=== PATIENT | male | born 1970 | race Caucasian/White ===

== ENCOUNTER 2016-08-03 12:20 | Emergency (ER) | payer OTHER ==
[2016-08-03 14:14] LABS: Hematocrit 41.4 % (42.0-52.0); Hemoglobin 14.9 gm/dL (13.5-18.0); Mean Cell Volume 88.8 fl (78-100); Mean Platelet Volume 8.8 fl (6.0-9.5); Neutrophil # 2.5 K/mm3 (1.3-6.0); Neutrophil % 54.4 % (42-75.0); Platelet Count 122 K/mm3 (150-450); Red Blood Count 4.66 M/mm3 (4.7-6.0); Red Cell Distribution Width 13.8 % (11.5-14.0); White Blood Count 4.6 K/mm3 (4.0-10.5)
[2016-08-03 14:23] LABS: Urine Bilirubin Negative (NEGATIVE); Urine Ketone 15 mg/dL (NEGATIVE); Urine Nitrite Negative (NEGATIVE); Urine Protein Negative (NEGATIVE); Urine Specific Gravity 1.015 SP.GR. (1.005-1.030); Urine Urobilinogen Normal (NORMAL)
--- OUTSIDE RECORDS SUMMARY | 2016-08-03 14:24 | XMS REPORT | Continuity of Care Document ---
:1970 Author Organization [facility] [place] [address] Phone [phone] Care Team Providers Name Role Phone Unavailable Primary Care Provider Unavailable Active Allergies and Adverse Reactions No Known Allergies Current Medications Not on file Active Problems Problem Noted Date Alcohol dependence (HCC) 10/18/2013 Bipolar disorder ([facility]) 10/18/[address] decision 10/18/2013 Overview: substance abuse court order Social History Tobacco Use Types Packs/Day Years Used Date Never Assessed Last Filed Vital Signs Vital Sign Reading Time Taken Blood Pressure 120/79 10/21/2013 6:00 AM CDT Pulse 83 10/21/2013 6:00 AM CDT Temperature 35.9 C (96.7 F) 10/21/2013 6:00 AM CDT Respiratory Rate 16 10/21/2013 6:00 AM CDT Height - - Weight 79.561 kg (175 lb 6.4 oz) 10/18/2013 9:43 PM CDT Body Mass Index - - Oxygen Saturation - - Plan of Care Health Maintenance Due Date Last Done Comments [facility] Dtap/Tdap/Td Vaccines (1 - 1987 Tdap) [facility] Lipid Disorder Screening 2003 [facility] Influenza 12/20/2015 [facility] Zoster (#1) 2028 [facility] Pneumococcal Pcv7/13 0-5 Aged Out No longer eligible based on Yrs patient's age to complete this topic Results from Last 3 Months Not on file
[2016-08-03 14:30] LABS: Urine Appearance Clear; Urine Bacteria None Seen; Urine Blood 10 /ul (NEGATIVE); Urine Color Yellow; Urine RBC None Seen /hpf (0-5); Urine WBC None Seen /hpf (0-5)
[2016-08-03 14:37] LABS: Cocaine Ur Negative (NEGATIVE); Urine Barbiturate Negative (NEGATIVE); Urine Benzodiazepines Negative (NEGATIVE); Urine Opiates Negative (NEGATIVE); Urine PCP Negative (NEGATIVE); Urine THC Negative (NEGATIVE)
[2016-08-03 14:37] LABS: ALT 44 U/L (19-67); AST 61 U/L (0-48); Albumin * 4.6 gm/dl (3.4-5.0); Alkaline Phosphatase * 63 U/L (50-170); Anion Gap 21.6 mmol/L (6.8-13.8); BUN/Creatinine Ratio 4.4 (9.0-21.6); Bilirubin, Total 0.6 mg/dL (0.0-1.1); Blood Urea Nitrogen 3 mg/dL (6-23); Chloride 90 mmol/L (97-106); Glucose * 94 mg/dL (70-110); Potassium 3.6 mmol/L (3.4-4.6); Sodium 129 mmol/L (132-142); TSH * 1.407 uIU/mL (0.358-3.74)
[2016-08-03 14:53] LABS: Ca. Corrected For Albumin 7.7 mg/dL (8.4-10.2); Calcium * 8.5 mg/dL (7.9-10.9); Total Protein 7.9 gm/dL (6.2-8.2)
[2016-08-03] MEDS ORDERED: MULTIVIT INFUSN,ADULT 4,VIT K 10 ML, THIAMINE HCL 100 MG in NORMAL SALINE 1,000 ML IV SCH ×6 (16:00)
--- NOTE | 2016-08-03 18:52 | ERNOTE ---
Psychological HPI - Date Date of Service: 08/03/16 - General Chief Complaint: Psychiatric Problem Source: Reports: patient, police, other - under court order Exam Limitations: Reports: no limitations - Immun/Allergies/Home Medications Allergies/Adverse Reactions: Allergies No Known Allergies Allergy (Verified 08/03/16 12:36) Home Medications: HOME MEDICATIONS chlordiazePOXIDE HCL [Librium] 25 mg PO BID #30 capsule 03/14/16 [Last Taken Unknown] - History of Present Illness Narrative: Pt brought to ER in custody of police under court order for mental health evaluation. Pt's family concerned about his excessive alcohol intake. Petitions on review, do not however mention suicidal or homicidal tendencies. Pt denies any such tendencies, and simply states he drinks because he is bored. He claims to understand the ramifications of his actions, but declines any alcohol treatment or rehab services at this time. Time Seen by Provider: 08/03/16 13:00 Intent: Reports: no prior thoughts-suicide. Denies: suicide, prior thoughts of suicide Review of Systems - Review of Systems Constitutional: Present: no symptoms reported EYE: Present: no symptoms reported ENT: Present: no symptoms reported Respiratory: Present: no symptoms reported Cardiology: Present: no symptoms reported Gastrointestinal/Abdominal: Present: no symptoms reported Genitourinary: Present: no symptoms reported Musculoskeletal: Present: no symptoms reported Skin: Present: no symptoms reported Neurological: Present: no symptoms reported Endocrine: Present: no symptoms reported Hematologic/Lymphatic: Present: no symptoms reported Psych: Present: See HPI - Patient's Past Medical History Patient History - Medical: Alcohol Abuse, Seizures Patient History - Cardiac/Respiratory: No pertinent hx Patient History - Cancer: No Hx of Cancer Patient History - Surgical Procedures: No surgical history Patient History - Other: None - Social History Living Situations: home Psych History: Hx of Anxiety, Hx of Depression Alcohol Use: heavy Drug Use: none - Immunizations Immunizations Up to Date: No Hx Pneumococcal Vaccination: No History of Influenza Vaccine: No Physical Exam - Physical Exam General Appearance: Present: wd/wn, alert, no apparent distress Eye Exam: Normal inspection: bilateral, PERRL: bilateral, EOMI: bilateral Ears, Nose, Throat: Present: normal ENT inspection Neck: Present: normal inspection, nontender Respiratory: Present: no respiratory distress, normal breath sounds, no accessory muscle use, chest nontender, lungs clear Cardiovascular/Chest: Present: regular rate, rhythm, no murmur Gastrointestinal/Abdominal: Present: normal bowel sounds, nontender, nondistended, soft, no organomegaly Neurological Exam: Present: alert, oriented, other - flat affect; but denies any suicidal or homicidal ideation. Skin Exam: Present: normal color, warm/dry ED Progress - Results and Orders Patient's Lab Results:: I have reviewed the patient's lab results. - Vital Signs Patient's Vital Signs:: I have reviewed the patient's vital signs. Vital Signs: Vital Signs 08/03/16 12:31 Temperature 36.7 C Pulse Rate 103 H Respiratory 20 Rate Blood Pressure 149/93 O2 Sat by Pulse 97 Oximetry - Progress/Reassessment Chief Complaint: Psychiatric Problem Plan - Plan Plan: Case discussed with remanding [employer]ice, whom I informed of pt not being a threat to himself or others. [employer] C[employer]ice approved release of pt from court order. Pt advised to be mindful of his alcohol intake and to seek outpatient services. Departure Clinical Impression: Alcohol abuse with intoxication, uncomplicated - Departure Disposition: Home self-care Condition: Good Instructions: Alcohol Use Disorder, Alcohol Intoxication, [id number], Alcoholic Liver Disease, [id number]
[2016-08-03 19:23] VITALS: BP 153/96
== END 2016-08-03 19:28 | disposition home or self-care (01) ==
LOC: ER 12:20
DX: F10.120 Alcohol abuse with intoxication, uncomplicated (principal); R56.9 Unspecified convulsions
CPT/HCPCS: 36415; 80053; 80307; 81001; 84443; 85025; 96365; 99283; G0480; G0481